=== PATIENT | male | born 1975 | race Two or more races ===

== ENCOUNTER 2020-05-11 19:36 | Emergency (ER) | payer SELFPAY ==
[~2020-05-11] VITALS: Ht 162.6 cm; Wt 56.7 kg
[2020-05-11 19:40] VITALS: BP 123/78
--- NOTE | 2020-05-11 19:40 | NUR ---
ED Nurse Note: pt [address]IB[address] c/o palpitations but denies chest pain and SOB. Pt is awake alert and oriented x4, currently has tremors. Pt is tachycardic 125, febrile 101.7 oral, on room air 100%. Pt admits to drinking alchohol today.
[2020-05-11] MEDS ORDERED: LORazepam Inj 2mg/ml 1ml IV ONE (19:45)
[2020-05-11] MEDS ORDERED: Folic Acid 1 MG, Multivitamin - 12 Injection 10 ML, Thiamine HCl 100 MG in Sodium Chlor... IV ONE (19:45)
--- NOTE | 2020-05-11 19:46 | Emergency Room Report ---
History of Present Illness General Chief Complaint: Alcohol Intoxication Source: Patient, EMS Present Illness HPI Patient is a 44-year-old male past history of alcohol abuse and hypertension who presents to the ER complaining of palpitations. Patient complains of palpitations since yesterday with feeling shaky and short of breath. He also complains of some generalized body aches and right-sided chest pain. He denies fever or chills. Patient states that his last drink was maybe yesterday. He is very nonspecific about his alcohol intake. Patient denies any trauma. He denies any abdominal pain, nausea or vomiting. Patient was brought in by EMS from the street. Allergies: Coded Allergies: No Known Allergies (Unverified , 05/11/20) COVID-19 Screening Contact w/high risk pt: No Experienced COVID-19 symptoms?: No COVID-19 Testing performed FEED ADVISER: No Patient History Reviewed Nursing Documentation: PMH: Agreed; PSxH: Agreed Review of Systems All Other Systems: negative except mentioned in HPI Physical Exam Vital Signs Date Time Temp Pulse Resp B/P (MAP) Pulse Ox O2 Delivery O2 Flow Rate FiO2 05/11/20 19:37 97.9 120 18 124/80 (95) 98 Room Air Sp02 EP Interpretation: reviewed, normal General Appearance: GCS 15, mild distress, other - Disheveled, Chronically Ill Head: normocephalic, atraumatic Eyes: bilateral eye normal inspection, bilateral eye PERRL ENT: dry mucus membranes Neck: full range of motion, supple/symm/no masses Respiratory: lungs clear, no respiratory distress, no accessory muscle use Cardiovascular #1: tachycardia Gastrointestinal: non tender, soft Rectal: deferred Musculoskeletal: normal range of motion, no calf tenderness, no lower extremity edema Neurologic: vp product III-XII nml as tested, oriented x3 Psychiatric: no suicidal/homicidal ideation Skin: no rash Lymphatic: no adenopathy Medical Decision Making Homeless Attestation I, The treating physician Dr. Mullins, have assessed and agrees that patient is medically stable for discharge to an outpatient disposition. Diagnostic Impression: Primary Impression: Pneumonia Additional Impressions: Alcohol withdrawal Palpitations ER Course Patient's heart rate improved. Patient given IV fluids and Ativan. Patient CT consistent with pneumonia. Patient started on Levaquin. Patient given outpatient resources for alcohol detox and Librium. Patient presented with atypical right-sided chest pain. I suspect the chest pain the patient is presenting with is atypical in nature. Aortic dissection was considered but in the physical exam the patient has equal pulses in all extremities, no new focal neurological deficits, no apparent diastolic murmur on the cardiac exam, and no widening of the mediastinum on CXR. Pulmonary embolism was also considered however I believe patient to be low risk given no evidence of hypoxemia, no significant unilateral leg swelling, no recent travel, no history of cancer, no right axis deviation on EKG, no evidence of pulmonary embolism on CT, and no recent surgery. I also doubt that this is acute coronary syndrome since EKG shows no STEMI, troponin is normal, and the patients chest pain has resolved The patient was counseled that, though unlikely, the possibility of an emergent cause of chest pain may still be present and that the patient should return immediately if symptoms persists or worsen. I believe the patient is stable for discharge to follow-up with their PMD. EKG Diagnostic Results Troponin ordered: Yes When was troponin ordered?: May 11, 2020 EKG Time: 19:48 EP Interpretation: Stephanie Mullins MD Rate: tachycardiac - 125 bpm Rhythm: other - Sinus tachycardia ST Segments: other - Deep ST inversions V2 through V6 Rhythm Strip Diag. Results Rhythm Strip Time: 19:46 EP Interpretation: yes - Stephanie Mullins MD Rate: 123 bpm Rhythm: no PVC's, no ectopy, other - sinus tachycardia Chest X-Ray Diagnostic Results Chest X-Ray Diagnostic Results : Chest X-Ray Ordered: Yes # of Views/Limited/Complete: 1 View Indication: Chest Pain EP Interpretation: Yes Interpretation: no consolidation, no effusion, no pneumothorax, no acute cardiopulmonary disease Impression: No acute disease Electronically Signed by: Stephanie Mullins MD Last Vital Signs Date Time Temp Pulse Resp B/P (MAP) Pulse Ox O2 Delivery O2 Flow Rate FiO2 05/11/20 19:37 97.9 120 18 124/80 (95) 98 Room Air Disposition: HOME, SELF-CARE Condition: Stable - Improved Scripts Chlordiazepoxide Hcl* (LIBRIUM*) 10 Mg Capsule 25 MG ORAL THREE TIMES A DAY, #15 CAP 0 Refills Prov: Stephanie Mullins M.D. 05/11/20 Levofloxacin* (LEVOFLOXACIN*) 750 Mg Tablet 750 MG ORAL DAILY for 7 Days, #14 TAB Prov: Stephanie Mullins M.D. 05/11/20 Additional Instructions: The patient was provided with discharge instructions, notified to follow-up with a primary care doctor and or specialist in the next 24-48 hours, and to return to the ED if they have worsening of their symptoms. Please note that this report is being documented using DRAGON technology. This can lead to erroneous entry secondary to incorrect interpretation by the dictating instrument. Stephanie Mullins M.D. May 11, 2020 19:46
--- NOTE | 2020-05-11 19:54 | NUR ---
ED Nurse Note: senior technical architect at bedside performing CXR
[2020-05-11] MEDS ORDERED: Acetaminophen 500mg (ES) tab ORAL ONE (20:00)
[2020-05-11 20:06] LABS: BASOPHILS % (AUTO) 1.2 % (0.0-2.0); EOSINOPHILS % (AUTO) 0.4 % (0.0-3.0); HEMATOCRIT 35.9 % (42.0-52.0); HEMOGLOBIN 11.8 G/DL (14.2-18.0); MEAN CORPUSCULAR VOLUME 100 FL (80-99); MONOCYTES % (AUTO) 5.5 % (1.0-10.0); NEUTROPHILS % (AUTO) 84.9 % (45.0-75.0); PLATELET COUNT 270 K/UL (150-450); RED BLOOD COUNT 3.61 M/UL (4.70-6.10); RED CELL DISTRIBUTION WIDTH 14.4 % (11.6-14.8); WHITE BLOOD COUNT 8.4 K/UL (4.8-10.8)
--- NOTE | 2020-05-11 20:14 | NUR ---
ED Nurse Note: urine sent to lab
[2020-05-11 20:17] LABS: ANION GAP 12 mmol/L (5-15); BLOOD UREA NITROGEN 5 mg/dL (7-18); CALCIUM 8.3 MG/DL (8.5-10.1); CARBON DIOXIDE 23 MMOL/L (21-32); CHLORIDE 105 MMOL/L (98-107); CREATININE 0.7 MG/DL (0.55-1.30); POTASSIUM 4.3 MMOL/L (3.5-5.1); SODIUM 140 MMOL/L (136-145)
[2020-05-11 20:22] LABS: APPEARANCE,URINE CLEAR; BILIRUBIN, URINE NEGATIVE (NEGATIVE); COLOR,URINE PALE YELLOW; GLUCOSE, URINE (UA) NEGATIVE (NEGATIVE); KETONES,URINE NEGATIVE (NEGATIVE); LEUKOCYTE ESTERASE ,URINE NEGATIVE (NEGATIVE); NITRITE,URINE NEGATIVE (NEGATIVE); PH,URINE 5 (4.5-8.0); PROTEIN,URINE NEGATIVE (NEGATIVE); UROBILINOGEN,URINE NORMAL MG/DL (0.0-1.0)
[2020-05-11 20:22] LABS: ALANINE AMINOTRANSFERASE 32 U/L (12-78); ALBUMIN 3.2 G/DL (3.4-5.0); ALBUMIN/GLOBULIN RATIO 0.8 (1.0-2.7); ALKALINE PHOSPHATASE 98 U/L (46-116); ASPARTATE AMINO TRANSFERASE 41 U/L (15-37); BILIRUBIN,TOTAL 0.4 MG/DL (0.2-1.0); CREATINE KINASE 68 U/L (26-308)
--- NOTE | 2020-05-11 20:27 | NUR ---
ED Nurse Note: pt went down for CT via gurney in stable condition accompanied by CT staff.
--- NOTE | 2020-05-11 20:42 | NUR ---
ED Nurse Note: pt back from CT in stable condition.
--- NOTE | 2020-05-11 20:56 | Diagnostic Imaging Report ---
EXAM: CT Head Without Intravenous Contrast CLINICAL HISTORY: AMS TECHNIQUE: Axial computed tomography images of the head/brain without intravenous contrast. CTDI is 53.4 mGy and DLP is 965.4 mGy-cm. One or more of the following dose reduction techniques were used: automated exposure control, adjustment of the mA and/or kV according to patient size, use of iterative reconstruction technique. COMPARISON: No relevant prior studies available. FINDINGS: Brain: No hemorrhage. No edema. Some atrophy. Ventricles: No ventriculomegaly. Bones/joints: No acute fracture. Soft tissues: Unremarkable. Sinuses: No acute sinusitis. Mastoid air cells: No mastoid effusion. IMPRESSION: No acute intracranial process.
[2020-05-11] MEDS ORDERED: Omnipaque 350 100ml vial INJ PRN (21:00)
--- NOTE | 2020-05-11 21:25 | NUR ---
ED Nurse Note: pt went down to CTA via gurney in stable condition accompanied by CT staff.
--- NOTE | 2020-05-11 21:44 | NUR ---
ED Nurse Note: pt back from CTA in stable condition.
--- NOTE | 2020-05-11 21:55 | NUR ---
ED Nurse Note: pt back from CT in stable condition.
--- NOTE | 2020-05-11 22:29 | Diagnostic Imaging Report ---
EXAM: CT Chest With Intravenous Contrast CLINICAL HISTORY: SOB TECHNIQUE: Axial computed tomography images of the chest with intravenous contrast. CTDI is 23.6 mGy and DLP is 115.1 mGy-cm. One or more of the following dose reduction techniques were used: automated exposure control, adjustment of the mA and/or kV according to patient size, use of iterative reconstruction technique. MIP reconstructed images were created and reviewed. COMPARISON: No relevant prior studies available. FINDINGS: Lungs: Patchy bilateral infiltrates. Pleural space: Unremarkable. No pneumothorax. No effusion. Heart: No cardiomegaly. No pericardial effusion. Bones/joints: No acute fracture. Soft tissues: Unremarkable. Vasculature: Limited enhancement of the pulmonary arteries. No apparent large central pulmonary embolus. Lymph nodes: No enlarged lymph nodes. IMPRESSION: 1. Limited enhancement of the pulmonary arteries. No apparent large central pulmonary embolus. 2. Patchy bilateral infiltrates.
[2020-05-11] MEDS ORDERED: Levofloxacin 750mg tab ORAL ONE (22:30)
[2020-05-11] MEDS ORDERED: LEVOFLOXACIN750 MG ORAL (22:33)
[2020-05-11] MEDS ORDERED: LIBRIUM10 MG ORAL (22:34)
[2020-05-11] MEDS ORDERED: chlordiazePOXIDE 25mg Cap ORAL ONE (22:45)
[2020-05-11 23:00] VITALS: BP 123/78
--- NOTE | 2020-05-11 23:00 | NUR ---
ER DISCHARGE NOTE: Pt refused to complete mini cog exam, EDMD aware and charge nurse aware. Patient is cleared to be discharged per ERMD, pt is aox4, on room air, with stable vital signs. pt was given dc and prescription instructions, pt was able to verbalize understanding, pt id band and iv site removed without complications. pt is able to ambulate with steady gait. pt given meal and weather appropriate clothes. pt took all belongings.
--- NOTE | 2020-05-12 15:59 | Cardiology Report ---
APPROVED REPORT EKG Measurement Heart [id number] <Conclusion> Sinus tachycardia ST & Marked T wave abnormality, consider anterolateral ischemia Abnormal ECG
--- NOTE | 2020-05-12 20:33 | Diagnostic Imaging Report ---
Indication: Chest pain Technique: One view of the chest Comparison: none Findings: Lungs and pleural spaces are clear. Heart size is normal. Impression: No acute process
== END 2020-05-11 23:00 | disposition home or self-care (01) ==
LOC: EDBD 19:36 → EMR 19:48
DX: J18.9 Pneumonia, unspecified organism (principal); F10.239 Alcohol dependence with withdrawal, unspecified; R00.2 Palpitations; R00.0 Tachycardia, unspecified; R07.9 Chest pain, unspecified
CPT/HCPCS: 36415; 70450; 71045; 71275; 80053; 80307; 81003; 82550; 83605; 83735; 84484; 85025; 85379; 85610; 85730; 87040; 93005; 96361; 96374; 96375; 99284; J2405; J3490; J7030; Q9967; S0028; U0002